=== PATIENT | male | born 1945 | race Caucasian/White ===

== ENCOUNTER 2019-01-04 18:48 | Inpatient (IN) | payer MEDICARE, BC ==
[~2019-01-04] VITALS: Ht 170.2 cm; Wt 80.0 kg
[2019-01-04 19:25] LABS: BASOPHILS % (AUTO) 0.3 % (0-1); EOSINOPHILS % (AUTO) 0.1 % (0-6); HEMATOCRIT 34.3 % (42.0-52.0); HEMOGLOBIN 11.1 g/dl (14.0-17.9); LYMPHOCYTES # (AUTO) 0.3 X10'3 (1.1-4.8); LYMPHOCYTES % (AUTO) 2.7 % (21-51); MEAN CORPUSCULAR HEMOGLOBIN 30.5 PG (27.0-31.0); MEAN CORPUSCULAR HGB CONC 32.5 g/dL (33.0-36.5); MEAN CORPUSCULAR VOLUME 93.9 FL (78-98); MEAN PLATELET VOLUME 7.7 FL (7.4-10.4); MONOCYTES # (AUTO) 0.2 X10'3 (0-0.9); MONOCYTES % (AUTO) 1.6 % (2-12); NEUTROPHILS % (AUTO) 95.3 % (42-75); PLATELET COUNT 330 X10'3 (140-440); RED BLOOD COUNT 3.66 X10'6 (4.70-6.10); RED CELL DISTRIBUTION WIDTH 15.5 % (11.5-14.5); WHITE BLOOD COUNT 12.5 X10'3 (4.5-11.0)
[2019-01-04 19:37] LABS: INR 2.1 INR; PARTIAL THROMBOPLASTIN TIME 36 SECONDS (22-32); PROTHROMBIN TIME 20.7 SECONDS (9.0-12.0)
[2019-01-04 19:38] LABS: ALANINE AMINOTRANSFERASE 25 U/L (12-78); ALBUMIN 2.8 G/DL (3.4-5.0); ALBUMIN/GLOBULIN RATIO 0.8 (1.1-1.5); ALKALINE PHOSPHATASE 96 IU/L (46-116); ANION GAP 11 (8-16); ASPARTATE AMINO TRANSFERASE 22 U/L (10-37); BILIRUBIN,TOTAL 0.7 MG/DL (0.1-1.0); BLOOD UREA NITROGEN 22 MG/DL (7-18); BUN/CREATININE RATIO 12.2 (5.4-32.0); CALCIUM 8.9 MG/DL (8.5-10.1); CHLORIDE 99 MMOL/L (99-107); CREATININE 1.81 MG/DL (0.60-1.10); GLUCOSE 168 MG/DL (70-104); POTASSIUM 4.1 MMOL/L (3.5-5.1); SODIUM 137 MMOL/L (135-145); TOTAL CARBON DIOXIDE 27.3 MMOL/L (24-32); TOTAL PROTEIN 6.4 G/DL (6.4-8.2); eGFR 37 ML/MIN
--- NOTE | 2019-01-04 19:49 | NUR ---
Afshan [phone] - CRISTAL Queen [phone] - SON Asiya [phone] - daughter
[2019-01-04] MEDS ORDERED: AMIO200T27 PO (19:55)
[2019-01-04] MEDS ORDERED: CLOP75TA15 PO (20:02)
[2019-01-04] MEDS ORDERED: LEVO50TA8 PO (20:02)
[2019-01-04] MEDS ORDERED: ATOR20TA PO (20:02)
[2019-01-04] MEDS ORDERED: POTA10TA10 PO (20:02)
[2019-01-04] MEDS ORDERED: ZAR2.5T PO (20:02)
[2019-01-04] MEDS ORDERED: FURO80TA3 PO (20:02)
[2019-01-04] MEDS ORDERED: NICO-687 TOP (20:02)
[2019-01-04] MEDS ORDERED: ASPI-1053 PO (20:02)
[2019-01-04] MEDS ORDERED: BUDE10.2 INH (20:02)
[2019-01-04] MEDS ORDERED: COU2.5T PO ×2 (20:02)
[2019-01-04] MEDS ORDERED: LEVA1.2527 NEB (20:02)
[2019-01-04 20:13] LABS: TROPONIN I 0.09 NG/ML (0.0-0.05)
[2019-01-04] MEDS ORDERED: ondansetron/PF 4mg/2ml inj IV PRN (20:30)
[2019-01-04] MEDS ORDERED: potassium Cl 40MEQ/NS 500ml 500 ML IV PRN ×2 (20:30)
[2019-01-04] MEDS ORDERED: mag hydrox/Alum hydrox/simeth 30ml oral suspension PO PRN (20:30)
[2019-01-04] MEDS ORDERED: nitroGLYCERIN 0.4mg SUBLingual tab SL PRN (20:30)
[2019-01-04] MEDS ORDERED: magnesium 4gm in 100ml NS 100 ML IV PRN (20:30)
[2019-01-04] MEDS ORDERED: magnesium hydroxide 30ml (MOM) UD suspension PO PRN (20:30)
[2019-01-04] MEDS ORDERED: magnesium 2GM in 50ml NS 50 ML IV PRN (20:30)
[2019-01-04] MEDS ORDERED: acetaminophen 325mg tablet PO PRN ×2 (20:30)
[2019-01-04] MEDS ORDERED: potassium Cl 20 mEq SR tablet PO PRN ×2 (20:30)
[2019-01-04] MEDS ORDERED: magnesium Cl slow-release 64mg tablet PO PRN (20:30)
[2019-01-04 21:15] VITALS: BP 92/58
--- NOTE | 2019-01-04 21:30 | NUR ---
Patient admitted via stretcher from ER. Patient without complaints or pain. VS 92/58 (patient states he has chronic low blood pressures), HR 82 NSR, 98.7 temp, RR 14, 92% on 2L NC (home O2). Patient oriented to room, call elliott, and plan of care.
[2019-01-04] MEDS: guaiFENesin ER 600mg tablet PO SCH (22:46)
[2019-01-05] VITALS (14 sets, daily range): BP systolic 82–116; BP diastolic 52–76
[2019-01-05] MEDS ORDERED: metolazone 2.5mg tablet PO SCH (02:35)
[2019-01-05 02:59] LABS: BASOPHILS % (AUTO) 0.1 % (0-1); EOSINOPHILS % (AUTO) 0 % (0-6); HEMATOCRIT 29.9 % (42.0-52.0); LYMPHOCYTES # (AUTO) 0.6 X10'3 (1.1-4.8); LYMPHOCYTES % (AUTO) 8.8 % (21-51); MEAN CORPUSCULAR HEMOGLOBIN 31.2 PG (27.0-31.0); MEAN CORPUSCULAR HGB CONC 33.4 g/dL (33.0-36.5); MEAN CORPUSCULAR VOLUME 93.4 FL (78-98); MEAN PLATELET VOLUME 7.8 FL (7.4-10.4); MONOCYTES # (AUTO) 0.1 X10'3 (0-0.9); MONOCYTES % (AUTO) 1.5 % (2-12); NEUTROPHILS # (AUTO) 6.4 X10'3 (1.8-7.7); NEUTROPHILS % (AUTO) 89.6 % (42-75); PLATELET COUNT 280 X10'3 (140-440); RED CELL DISTRIBUTION WIDTH 14.9 % (11.5-14.5); WHITE BLOOD COUNT 7.1 X10'3 (4.5-11.0)
[2019-01-05 03:10] LABS: ALBUMIN 2.6 G/DL (3.4-5.0); ANION GAP 9 (8-16); BLOOD UREA NITROGEN 24 MG/DL (7-18); BUN/CREATININE RATIO 13.9 (5.4-32.0); CHLORIDE 101 MMOL/L (99-107); CREATININE 1.73 MG/DL (0.60-1.10); GLUCOSE 166 MG/DL (70-104); MAGNESIUM 1.9 MG/DL (1.5-2.4); SODIUM 136 MMOL/L (135-145); TOTAL CARBON DIOXIDE 26.3 MMOL/L (24-32); TROPONIN I 0.08 NG/ML (0.0-0.05); eGFR 39 ML/MIN
--- NOTE | 2019-01-05 06:25 | NUR ---
Patient in room PCU 3016. I have received report from Bea GAMBLE and had the opportunity to ask questions and assume patient care.
--- NOTE | 2019-01-05 06:25 | NUR ---
During bedside report patient was alert and oriented. C/O Dark sputum with cough. Would like to clarify a medication that he is taking at home that he states "makes his tongue feel slimy" this has been making him lose his appetite. No signs of distress at this time.
[2019-01-05] MEDS: K and/or MAG REPLACEMENT MC SCH (06:45)
[2019-01-05] MEDS: guaiFENesin ER 600mg tablet PO SCH ×2 (07:09→20:21)
[2019-01-05] MEDS: amiodarone 200mg tablet PO SCH (07:09)
[2019-01-05] MEDS: levoTHYROXINE 25mcg tablet PO SCH (07:09)
[2019-01-05] MEDS: clopidogrel 75mg tablet PO SCH (07:09)
[2019-01-05] MEDS: nicotine 21mg patch - 24 hr TD SCH (07:10)
[2019-01-05] MEDS ORDERED: furosemide 40mg/4ml inj IV SCH (08:00)
[2019-01-05] MEDS: potassium Cl 20 mEq SR tablet PO SCH (08:00)
[2019-01-05] MEDS ORDERED: aspirin 81mg tab.chew PO SCH (08:00)
--- NOTE | 2019-01-05 09:45 | NUR ---
Spoke with Dr Velez regarding patient's lasix and potassium. I held the medication as the patient's blood pressure was 84/53 and potassium was 4.0. Wanted to clarify the order with Dr Velez as the patient states that he runs hypotensive since his stents in November and he was prescribed midodrine, however the medication makes his tongue feel "slimy" and therefore hinders his appetite. Dr Velez asked me to obtain medical records from [facility] in [place], [place] and would like to know what the patient's EF is. diesel truck technician at bedside now. Medical record release obtained. Will fax to [facility].
--- NOTE | 2019-01-05 17:48 | NUR ---
Student documentation: I have reviewed and agree with all interventions, assessments performed and documented by Landy NOYOLA. Student Medication Administration: For this medication-pass time frame, all medication were reviewed, dispensed, administered and documented per hospital policy by Landy NOYOLA.
--- NOTE | 2019-01-05 18:16 | NUR ---
Problems reprioritized. Patient report given, questions answered & plan of care reviewed with Arianna GAMBLE.
--- NOTE | 2019-01-05 18:30 | NUR ---
Patient in room PCU 3016. I have received report from Madeline GAMBLE and had the opportunity to ask questions and assume patient care.
[2019-01-05] MEDS: furosemide 20 MG/2 ML vial IV SCH ×2 (20:00→20:41)
[2019-01-05] MEDS: atorvastatin 20mg tablet PO SCH (20:21)
[2019-01-05] MEDS: albuterol 2.5 MG/3 ML nebule NEB PRN (20:43)
--- NOTE | 2019-01-05 20:44 | NUR ---
pt suddenly short of breath. tachycardia in 120s. paged . orders to give lasix 20 that was held due to low bp. orders to bladder scan post lasix and ricks if needed. albuterol ordered PRN. RT with pt now. bp now 106/67
[2019-01-05] MEDS ORDERED: furosemide 40mg/4ml inj ONE ×2 (21:12→21:37)
--- NOTE | 2019-01-05 21:13 | NUR ---
sandra watson, dr. vaughan at bedside. orders for cxr, lasix, abg, ricsk
[2019-01-05] MEDS ORDERED: furosemide 40mg/4ml inj IV ONE ×2 (21:15→21:35)
--- NOTE | 2019-01-05 21:22 | NUR ---
ricks in, not much urine out. bladder scan next
[2019-01-05 22:01] LABS: BASOPHILS % (AUTO) 0.1 % (0-1); EOSINOPHILS % (AUTO) 0 % (0-6); HEMATOCRIT 34.9 % (42.0-52.0); HEMOGLOBIN 11.3 g/dl (14.0-17.9); LYMPHOCYTES # (AUTO) 1.3 X10'3 (1.1-4.8); LYMPHOCYTES % (AUTO) 7.9 % (21-51); MEAN CORPUSCULAR HEMOGLOBIN 30.5 PG (27.0-31.0); MEAN CORPUSCULAR HGB CONC 32.3 g/dL (33.0-36.5); MEAN CORPUSCULAR VOLUME 94.2 FL (78-98); MEAN PLATELET VOLUME 8.2 FL (7.4-10.4); MONOCYTES # (AUTO) 0.7 X10'3 (0-0.9); MONOCYTES % (AUTO) 4.2 % (2-12); NEUTROPHILS # (AUTO) 14.4 X10'3 (1.8-7.7); NEUTROPHILS % (AUTO) 87.8 % (42-75); PLATELET COUNT 373 X10'3 (140-440); RED CELL DISTRIBUTION WIDTH 15.2 % (11.5-14.5); WHITE BLOOD COUNT 16.3 X10'3 (4.5-11.0)
[2019-01-05] MEDS: heparin, porcine 5000 units/ml vial SQ SCH (22:09)
--- NOTE | 2019-01-05 22:12 | NUR ---
urine up to 150 out now. pt feeling much better and is in good spirits. he just wants to get better. on bipap
[2019-01-05 22:15] LABS: ALBUMIN 2.8 G/DL (3.4-5.0); ANION GAP 12 (8-16); BLOOD UREA NITROGEN 37 MG/DL (7-18); BUN/CREATININE RATIO 15.6 (5.4-32.0); CHLORIDE 99 MMOL/L (99-107); CREATININE 2.37 MG/DL (0.60-1.10); GLUCOSE 218 MG/DL (70-104); PHOSPHORUS 5.9 MG/DL (2.3-4.5); POTASSIUM 3.9 MMOL/L (3.5-5.1); SODIUM 134 MMOL/L (135-145); eGFR 27 ML/MIN
[2019-01-05 22:45] LABS: ABG BASE EXCESS 1.7 mmol/L (-2.0-3.0); ABG OXYGEN SATURATION 98.5 % (95-98); ABG PH (T) 7.482 (7.350-7.450); ALLEN'S TEST Positive; FCOHb 0.3 % (0.5-1.5); FMetHb 0.2 % (0.3-1.12); MINUTE VOLUME 24 L/min; PATIENT TEMPERATURE 36.6; RESPIRATORY RATE 22 b/min; RESPIRATORY RATE (OBSERVED) 26 b/min; TOTAL HEMOGLOBIN 11.8 G/dl (14.0-18.0)
[2019-01-06] VITALS (9 sets, daily range): BP systolic 79–96; BP diastolic 53–63
--- NOTE | 2019-01-06 00:26 | NUR ---
pt resting comfortably, bipap still on. clear yellow urine in ricks. no sign of distress noted
--- NOTE | 2019-01-06 01:46 | NUR ---
pt wanted bipap off
--- NOTE | 2019-01-06 02:13 | NUR ---
pt had taken bipap off for about 1/2 hour, but he wanted it back on now, felt the trouble breathing start again. he said this is how he was in [place], he was on and off bipap there also.
--- NOTE | 2019-01-06 06:36 | NUR ---
Problems reprioritized. Patient report given, questions answered & plan of care reviewed with Kay GAMBLE. pt resting, off bipap
--- NOTE | 2019-01-06 06:54 | NUR ---
Patient in room PCU 3016. I have received report from Arianna GAMBLE and had the opportunity to ask questions and assume patient care.
[2019-01-06 07:19] LABS: BASOPHILS % (AUTO) 0.2 % (0-1); EOSINOPHILS % (AUTO) 0.1 % (0-6); HEMOGLOBIN 10.1 g/dl (14.0-17.9); MEAN CORPUSCULAR HEMOGLOBIN 30.9 PG (27.0-31.0); MEAN CORPUSCULAR HGB CONC 32.7 g/dL (33.0-36.5); MEAN CORPUSCULAR VOLUME 94.4 FL (78-98); MEAN PLATELET VOLUME 8.1 FL (7.4-10.4); MONOCYTES # (AUTO) 0.9 X10'3 (0-0.9); MONOCYTES % (AUTO) 7.7 % (2-12); NEUTROPHILS # (AUTO) 8.6 X10'3 (1.8-7.7); PLATELET COUNT 312 X10'3 (140-440); RED BLOOD COUNT 3.28 X10'6 (4.70-6.10); WHITE BLOOD COUNT 11.5 X10'3 (4.5-11.0)
[2019-01-06 07:37] LABS: ALBUMIN 2.6 G/DL (3.4-5.0); ANION GAP 8 (8-16); BLOOD UREA NITROGEN 40 MG/DL (7-18); BUN/CREATININE RATIO 20.3 (5.4-32.0); CALCIUM 8.7 MG/DL (8.5-10.1); CHLORIDE 101 MMOL/L (99-107); CREATININE 1.97 MG/DL (0.60-1.10); GLUCOSE 112 MG/DL (70-104); MAGNESIUM 2.2 MG/DL (1.5-2.4); POTASSIUM 3.9 MMOL/L (3.5-5.1); SODIUM 137 MMOL/L (135-145); TOTAL CARBON DIOXIDE 27.8 MMOL/L (24-32); eGFR 34 ML/MIN
[2019-01-06] MEDS: amiodarone 200mg tablet PO SCH (07:38)
[2019-01-06] MEDS: levoTHYROXINE 25mcg tablet PO SCH (07:38)
[2019-01-06] MEDS: clopidogrel 75mg tablet PO SCH (07:39)
[2019-01-06] MEDS: guaiFENesin ER 600mg tablet PO SCH ×2 (07:39→19:45)
[2019-01-06] MEDS: heparin, porcine 5000 units/ml vial SQ SCH ×3 (07:39→17:11)
[2019-01-06] MEDS: potassium Cl 20 mEq SR tablet PO SCH (07:39)
[2019-01-06] MEDS: furosemide 20 MG/2 ML vial IV SCH ×2 (07:40→19:46)
[2019-01-06] MEDS: nicotine 21mg patch - 24 hr TD SCH (07:40)
[2019-01-06] MEDS: K and/or MAG REPLACEMENT MC SCH (07:44)
--- NOTE | 2019-01-06 14:45 | NUR ---
PAGER ID: [phone] MESSAGE: Skinny 666Eliza Chung. Can ricks catheter be removed? Kay [phone]
--- NOTE | 2019-01-06 14:59 | NUR ---
Paged respiratory Rm [phone],Cheng. Pt's trach needs adjusted again please!!!
--- NOTE | 2019-01-06 18:20 | NUR ---
Problems reprioritized. Patient report given, questions answered & plan of care reviewed with Arianna GAMBLE. Patient stable at transfer of care.
--- NOTE | 2019-01-06 18:30 | NUR ---
Patient in room PCU 3016. I have received report from Kay GAMBLE and had the opportunity to ask questions and assume patient care.
--- NOTE | 2019-01-06 18:52 | NUR ---
paged regarding lasix parameters. SBP 90/60 currently. PAGER ID: [phone] MESSAGE: [phone], Jesús Kay. Lasix parameters are still hold if SBP under 100. Do you want to change this? current bp 90/60. 80s-90s is pt current normal
[2019-01-06] MEDS: albuterol 2.5 MG/3 ML nebule NEB PRN (19:45)
[2019-01-06] MEDS: atorvastatin 20mg tablet PO SCH (19:45)
[2019-01-07] VITALS (7 sets, daily range): BP systolic 77–91; BP diastolic 47–61
[2019-01-07] MEDS: heparin, porcine 5000 units/ml vial SQ SCH ×2 (00:22→07:23)
--- NOTE | 2019-01-07 00:23 | NUR ---
pt request stool softner tomorrow
--- NOTE | 2019-01-07 05:13 | NUR ---
pt wanted bipap on, stating he felt like he was going to have trouble breathing again
[2019-01-07 06:04] LABS: BASOPHILS % (AUTO) 0.1 % (0-1); EOSINOPHILS % (AUTO) 0.2 % (0-6); HEMOGLOBIN 10.3 g/dl (14.0-17.9); LYMPHOCYTES # (AUTO) 2.4 X10'3 (1.1-4.8); MEAN CORPUSCULAR HEMOGLOBIN 31.2 PG (27.0-31.0); MEAN CORPUSCULAR HGB CONC 33.4 g/dL (33.0-36.5); MEAN CORPUSCULAR VOLUME 93.3 FL (78-98); MEAN PLATELET VOLUME 8.3 FL (7.4-10.4); MONOCYTES % (AUTO) 8.9 % (2-12); NEUTROPHILS # (AUTO) 8.1 X10'3 (1.8-7.7); NEUTROPHILS % (AUTO) 69.8 % (42-75); PLATELET COUNT 305 X10'3 (140-440); RED BLOOD COUNT 3.32 X10'6 (4.70-6.10); RED CELL DISTRIBUTION WIDTH 15.4 % (11.5-14.5); WHITE BLOOD COUNT 11.6 X10'3 (4.5-11.0)
[2019-01-07 06:06] LABS: ALBUMIN 2.6 G/DL (3.4-5.0); ANION GAP 10 (8-16); BLOOD UREA NITROGEN 43 MG/DL (7-18); BUN/CREATININE RATIO 26.2 (5.4-32.0); CALCIUM 8.9 MG/DL (8.5-10.1); CHLORIDE 104 MMOL/L (99-107); CREATININE 1.64 MG/DL (0.60-1.10); GLUCOSE 95 MG/DL (70-104); MAGNESIUM 2.2 MG/DL (1.5-2.4); POTASSIUM 3.9 MMOL/L (3.5-5.1); SODIUM 140 MMOL/L (135-145); TOTAL CARBON DIOXIDE 26.4 MMOL/L (24-32); eGFR 42 ML/MIN
--- NOTE | 2019-01-07 06:26 | NUR ---
Problems reprioritized. Patient report given, questions answered & plan of care reviewed with Kay GAMBLE.
--- NOTE | 2019-01-07 06:29 | NUR ---
Patient in room PCU 3016. I have received report from Arianna GAMBLE and had the opportunity to ask questions and assume patient care.
--- NOTE | 2019-01-07 07:14 | NUR ---
Re-checked patients BP. 89/53.
[2019-01-07] MEDS: furosemide 20 MG/2 ML vial IV SCH ×2 (07:21→20:23)
[2019-01-07] MEDS: levoTHYROXINE 25mcg tablet PO SCH (07:21)
[2019-01-07] MEDS: potassium Cl 20 mEq SR tablet PO SCH (07:22)
[2019-01-07] MEDS: amiodarone 200mg tablet PO SCH (07:22)
[2019-01-07] MEDS: guaiFENesin ER 600mg tablet PO SCH ×2 (07:22→20:22)
[2019-01-07] MEDS: clopidogrel 75mg tablet PO SCH (07:22)
[2019-01-07] MEDS: K and/or MAG REPLACEMENT MC SCH (07:30)
[2019-01-07] MEDS: nicotine 21mg patch - 24 hr TD SCH (07:31)
[2019-01-07 09:31] LABS: ALANINE AMINOTRANSFERASE 24 U/L (12-78); ALBUMIN 2.5 G/DL (3.4-5.0); ALBUMIN/GLOBULIN RATIO 0.8 (1.1-1.5); ALKALINE PHOSPHATASE 76 IU/L (46-116); ANION GAP 6 (8-16); ASPARTATE AMINO TRANSFERASE 17 U/L (10-37); BILIRUBIN,TOTAL 0.6 MG/DL (0.1-1.0); BLOOD UREA NITROGEN 43 MG/DL (7-18); CALCIUM 8.6 MG/DL (8.5-10.1); CHLORIDE 104 MMOL/L (99-107); CREATININE 1.72 MG/DL (0.60-1.10); GLUCOSE 156 MG/DL (70-104); POTASSIUM 3.9 MMOL/L (3.5-5.1); SODIUM 139 MMOL/L (135-145); TOTAL CARBON DIOXIDE 29.5 MMOL/L (24-32); TOTAL PROTEIN 5.7 G/DL (6.4-8.2); eGFR 39 ML/MIN
[2019-01-07 09:40] LABS: PROTHROMBIN TIME 19.4 SECONDS (9.0-12.0)
--- NOTE | 2019-01-07 15:36 | NUR ---
PAGER ID: [phone] MESSAGE: Eliza Hays. [facility] will not be able to scan lungs until tomorrow. Kay [phone]
[2019-01-07] MEDS: midodrine tablet 2.5 MG TABLET PO SCH ×2 (16:18→23:14)
--- NOTE | 2019-01-07 18:15 | NUR ---
Patient in room PCU 3016. I have received report from Kay GAMBLE and had the opportunity to ask questions and assume patient care. Pt is currently sleeping. Equal chest rise observed, no labored breathing. Low BPs on mobile. Per report he trends low MD aware. Orders for V/Q scan tmro.
--- NOTE | 2019-01-07 18:44 | NUR ---
Problems reprioritized. Patient report given, questions answered & plan of care reviewed with Amara RN. Patient stable at transfer of care.
--- NOTE | 2019-01-07 18:50 | NUR ---
Patient in room PCU 3016. I have received report from Kay and had the opportunity to ask questions and assume patient care.
[2019-01-07] MEDS: atorvastatin 20mg tablet PO SCH (20:22)
[2019-01-07] MEDS ORDERED: warfarin 1mg tablet PO ONE (21:00)
--- NOTE | 2019-01-07 23:10 | NUR ---
Page Sent promotional table spacer PAGER ID: [phone] MESSAGE: Jesús Eliza 3016-A here for CHF exac. blood pressure was 77/54 @2300. patient's SBP was in the 80s all day and day hospitalist was aware. patient has midodrine due at midnight. will give now. Sergei [phone]
--- NOTE | 2019-01-07 23:27 | NUR ---
Dr. Bingham advised to bring down head of bed some and elevate his legs to promote perfusion. Pt ASx, no dizziness, blurry vision, weakness or chest pain.
[2019-01-08 02:00] VITALS: BP 83/54
--- NOTE | 2019-01-08 02:42 | NUR ---
PAGER ID: [phone] MESSAGE: Jesús Ambrose in [id number] here for [facility] ex, has bipap on standby following a rapid he had 2 days ago. No order was ever placed then. May I have an order? Suad Kelly Addendum: 01/08/19 at 0253 by Suad Hopper RN New orders to have bipap PRGuerline
--- NOTE | 2019-01-08 06:36 | NUR ---
Problems reprioritized. Patient report given, questions answered & plan of care reviewed with VIRGIE.
--- NOTE | 2019-01-08 06:37 | NUR ---
Problems reprioritized. Patient report given, questions answered & plan of care reviewed with VIRGIE GAMBLE. NEW GRAD documentation: I have reviewed and agree with all interventions, assessments performed and documented by ROCKY GAMBLE. NEW GRAD Medication Administration: For this medication-pass time frame, all medication were reviewed, dispensed, administered and documented per hospital policy by ROCKY GAMBLE.
--- NOTE | 2019-01-08 06:49 | NUR ---
Patient in room PCU 3016. I have received report from Suad GAMBLE and had the opportunity to ask questions and assume patient care. Pt is saline locked, alert and oriented X 4 in no apparent distress, will continue to monitor.
[2019-01-08 07:00] VITALS: BP 83/48
[2019-01-08 07:05] LABS: BASOPHILS % (AUTO) 0.5 % (0-1); EOSINOPHILS # (AUTO) 0.1 X10'3 (0-0.9); EOSINOPHILS % (AUTO) 1.9 % (0-6); HEMATOCRIT 29.4 % (42.0-52.0); HEMOGLOBIN 9.8 g/dl (14.0-17.9); LYMPHOCYTES # (AUTO) 1.9 X10'3 (1.1-4.8); LYMPHOCYTES % (AUTO) 23.4 % (21-51); MEAN CORPUSCULAR HEMOGLOBIN 31.6 PG (27.0-31.0); MEAN CORPUSCULAR HGB CONC 33.4 g/dL (33.0-36.5); MEAN CORPUSCULAR VOLUME 94.4 FL (78-98); MEAN PLATELET VOLUME 8.3 FL (7.4-10.4); MONOCYTES # (AUTO) 0.9 X10'3 (0-0.9); MONOCYTES % (AUTO) 10.5 % (2-12); NEUTROPHILS # (AUTO) 5.1 X10'3 (1.8-7.7); NEUTROPHILS % (AUTO) 63.7 % (42-75); PLATELET COUNT 286 X10'3 (140-440); RED BLOOD COUNT 3.11 X10'6 (4.70-6.10); RED CELL DISTRIBUTION WIDTH 15.3 % (11.5-14.5); WHITE BLOOD COUNT 8.1 X10'3 (4.5-11.0)
[2019-01-08 07:11] LABS: ALBUMIN 2.3 G/DL (3.4-5.0); ANION GAP 7 (8-16); BLOOD UREA NITROGEN 42 MG/DL (7-18); BUN/CREATININE RATIO 31.6 (5.4-32.0); CALCIUM 8.5 MG/DL (8.5-10.1); CHLORIDE 107 MMOL/L (99-107); CREATININE 1.33 MG/DL (0.60-1.10); GLUCOSE 89 MG/DL (70-104); MAGNESIUM 2.2 MG/DL (1.5-2.4); POTASSIUM 4.1 MMOL/L (3.5-5.1); SODIUM 143 MMOL/L (135-145); TOTAL CARBON DIOXIDE 28.9 MMOL/L (24-32); eGFR 53 ML/MIN
[2019-01-08] MEDS: clopidogrel 75mg tablet PO SCH (07:46)
[2019-01-08] MEDS: levoTHYROXINE 25mcg tablet PO SCH (07:46)
[2019-01-08] MEDS: amiodarone 200mg tablet PO SCH (07:47)
[2019-01-08] MEDS: guaiFENesin ER 600mg tablet PO SCH ×2 (07:47→21:28)
[2019-01-08] MEDS: midodrine tablet 2.5 MG TABLET PO SCH ×2 (07:47→16:53)
[2019-01-08] MEDS: nicotine 21mg patch - 24 hr TD SCH (08:00)
[2019-01-08] MEDS: furosemide 20 MG/2 ML vial IV SCH ×2 (08:00→21:30)
[2019-01-08] MEDS: potassium Cl 20 mEq SR tablet PO SCH (08:00)
[2019-01-08] MEDS: K and/or MAG REPLACEMENT MC SCH (08:00)
[2019-01-08 08:04] LABS: INR 1.7 INR; PROTHROMBIN TIME 16.4 SECONDS (9.0-12.0)
--- NOTE | 2019-01-08 08:50 | NUR ---
PAGER ID: [phone] MESSAGE: [id number] Jesús Kay Pt blood pressure is 81/43, pt denies dizziness. Held scheduled Lasix, Thank you Lola #[phone]
[2019-01-08 11:00] VITALS: BP 90/54
[2019-01-08 15:00] VITALS: BP 84/50
[2019-01-08 18:00] VITALS: BP 82/53
--- NOTE | 2019-01-08 18:37 | NUR ---
Problems reprioritized. Patient report given, questions answered & plan of care reviewed with Luis RN and Donato RN.
[2019-01-08] MEDS ORDERED: warfarin 1mg tablet PO ONE (21:00)
[2019-01-08] MEDS: atorvastatin 20mg tablet PO SCH (21:28)
[2019-01-08 22:00] VITALS: BP 86/59
[2019-01-09] MEDS: midodrine tablet 2.5 MG TABLET PO SCH ×3 (00:08→16:42)
[2019-01-09 02:00] VITALS: BP 86/53
[2019-01-09 05:57] LABS: BASOPHILS % (AUTO) 0.5 % (0-1); EOSINOPHILS # (AUTO) 0.2 X10'3 (0-0.9); HEMATOCRIT 29.7 % (42.0-52.0); HEMOGLOBIN 9.9 g/dl (14.0-17.9); LYMPHOCYTES # (AUTO) 2.4 X10'3 (1.1-4.8); LYMPHOCYTES % (AUTO) 30.4 % (21-51); MEAN CORPUSCULAR HEMOGLOBIN 31.1 PG (27.0-31.0); MEAN CORPUSCULAR HGB CONC 33.3 g/dL (33.0-36.5); MEAN CORPUSCULAR VOLUME 93.4 FL (78-98); MEAN PLATELET VOLUME 8.1 FL (7.4-10.4); MONOCYTES # (AUTO) 0.8 X10'3 (0-0.9); MONOCYTES % (AUTO) 9.9 % (2-12); NEUTROPHILS # (AUTO) 4.4 X10'3 (1.8-7.7); NEUTROPHILS % (AUTO) 56.2 % (42-75); PLATELET COUNT 288 X10'3 (140-440); RED BLOOD COUNT 3.18 X10'6 (4.70-6.10); RED CELL DISTRIBUTION WIDTH 15.4 % (11.5-14.5); WHITE BLOOD COUNT 7.7 X10'3 (4.5-11.0)
[2019-01-09 05:58] LABS: ALBUMIN 2.3 G/DL (3.4-5.0); ANION GAP 6 (8-16); BLOOD UREA NITROGEN 36 MG/DL (7-18); BUN/CREATININE RATIO 28.3 (5.4-32.0); CALCIUM 8.5 MG/DL (8.5-10.1); CHLORIDE 106 MMOL/L (99-107); CREATININE 1.27 MG/DL (0.60-1.10); GLUCOSE 87 MG/DL (70-104); MAGNESIUM 2.1 MG/DL (1.5-2.4); POTASSIUM 3.7 MMOL/L (3.5-5.1); SODIUM 140 MMOL/L (135-145); TOTAL CARBON DIOXIDE 28.3 MMOL/L (24-32); eGFR 56 ML/MIN
[2019-01-09 06:08] LABS: INR 1.3 INR; PROTHROMBIN TIME 13.3 SECONDS (9.0-12.0)
--- NOTE | 2019-01-09 06:32 | NUR ---
Patient in room PCU 3016. I have received report from Luis GAMBLE and had the opportunity to ask questions and assume patient care. Pt is saline locked on 2L nasal canula. Pt resting in no apparent distress, will continue to monitor.
[2019-01-09 07:00] VITALS: BP 82/60
[2019-01-09] MEDS: potassium Cl 20 mEq SR tablet PO SCH (07:26)
[2019-01-09] MEDS: amiodarone 200mg tablet PO SCH (07:26)
[2019-01-09] MEDS: levoTHYROXINE 25mcg tablet PO SCH (07:26)
[2019-01-09] MEDS: guaiFENesin ER 600mg tablet PO SCH (07:26)
[2019-01-09] MEDS: clopidogrel 75mg tablet PO SCH (07:26)
[2019-01-09] MEDS: K and/or MAG REPLACEMENT MC SCH (08:00)
[2019-01-09] MEDS: furosemide 20 MG/2 ML vial IV SCH (08:00)
[2019-01-09] MEDS: nicotine 21mg patch - 24 hr TD SCH (08:00)
[2019-01-09 11:00] VITALS: BP 107/63
--- NOTE | 2019-01-09 11:05 | NUR ---
PAGER ID: [phone] MESSAGE: [id number] Jesús Kay Pt's blood pressure is now 107/63, would you like me to give Lasix now? Held at 0800 due to decreased BP. Thank you, Lola #[phone]
--- NOTE | 2019-01-09 11:16 | NUR ---
Initial: Pt admit with CHF with possible cor-pulmonale unknown, currently receiving Lasix per MD notes. Pt on a heart healthy diet with fluid restriction of 1500 mL/day with documented PO intake 50-75% likely meeting nutrient needs. LBM 01/09. No edema or wounds. No nutrition diagnosis at this time. Will continue to follow. Recommendations: 1) Continue heart healthy diet with fluid restriction per MD 2) Wt per rx Addendum: 01/09/19 at [address] Amended: Links added.
[2019-01-09 15:00] VITALS: BP 94/50
[2019-01-09] MEDS ORDERED: FURO-150 PO (16:24)
[2019-01-09] MEDS ORDERED: MIDO5TAB PO (16:24)
--- NOTE | 2019-01-09 17:25 | NUR ---
Reviewed discharge instructions and provided patient education about patient's new medications, heart failure, importance of daily weights, monitoring blood pressure, signs and symptoms of when to return to the hospital. Called in new prescriptions to the [facility] in [place] on [address]. Patient is scheduled to see his PCP next Saturday at 10 am. Discontinued IV with canula intact and removed tele monitor. Pt discharged in stable condition and alert and oriented. Pt taken to lobby via wheelchair and driven home in private vehicle accompanied by family. Family was also present during discharge instructions and verbalized understanding.
[2019-01-09] MEDS ORDERED: warfarin 3mg tablet PO ONE (21:00)
== END 2019-01-09 17:25 | disposition home or self-care (01) | DRG 280 ==
LOC: ER 18:49 → ED HOLD 20:28 → PCU 3S 21:10
PROVIDERS: ADMIT Hospitalist; ATTEND Internal Medicine
PROC: 5A09357 Assistance with Respiratory Ventilation, Less than 24 Consecutive Hours, Continuous Positive Airway Pressure (ICD-10-PCS; principal; 2019-01-05)
PROC: 5A09357 Assistance with Respiratory Ventilation, Less than 24 Consecutive Hours, Continuous Positive Airway Pressure (ICD-10-PCS; 2019-01-06)
PROC: 5A09357 Assistance with Respiratory Ventilation, Less than 24 Consecutive Hours, Continuous Positive Airway Pressure (ICD-10-PCS; 2019-01-08)
PROC: CB121ZZ Planar Nuclear Medicine Imaging of Lungs and Bronchi using Technetium 99m (Tc-99m) (ICD-10-PCS; 2019-01-08)
DX: I11.0 Hypertensive heart disease with heart failure (principal); J96.01 Acute respiratory failure with hypoxia; I21.A1 Myocardial infarction type 2; N17.9 Acute kidney failure, unspecified; I50.43 Acute on chronic combined systolic (congestive) and diastolic (congestive) heart failure; I48.2 Chronic atrial fibrillation; I25.10 Atherosclerotic heart disease of native coronary artery without angina pectoris; E78.00 Pure hypercholesterolemia, unspecified; J44.9 Chronic obstructive pulmonary disease, unspecified; E03.9 Hypothyroidism, unspecified; I48.0 Paroxysmal atrial fibrillation; I27.20 Pulmonary hypertension, unspecified; K74.60 Unspecified cirrhosis of liver; E11.9 Type 2 diabetes mellitus without complications; I95.89 Other hypotension; E78.5 Hyperlipidemia, unspecified; F10.21 Alcohol dependence, in remission; I25.2 Old myocardial infarction; Z95.5 Presence of coronary angioplasty implant and graft; Z99.81 Dependence on supplemental oxygen; Z87.891 Personal history of nicotine dependence; Z79.01 Long term (current) use of anticoagulants; Z79.899 Other long term (current) drug therapy; Z79.890 Hormone replacement therapy
CPT/HCPCS: 36415; 36600; 71045; 76700; 78582; 80048; 80053; 82803; 82948; 83735; 83880; 84100; 84484; 85018; 85025; 85610; 85730; 87070; 93005; 93306; 94640; 94660; 94760; 97116; 97161; 97164; 97530; 99285; A9539; A9540; G0378; J1644; J1940

== ENCOUNTER 2019-01-12 23:19 | Inpatient (IN) | payer MEDICARE, BC ==
[~2019-01-12] VITALS: Ht 170.2 cm; Wt 81.5 kg
[~2019-01-12 23:19] MED LIST: AMIO200T27 PO; ATOR20TA PO; CLOP75TA15 PO; COU2.5T PO; FURO-150 PO; LEVO50TA8 PO; MIDO5TAB PO; POTA10TA10 PO; ZAR2.5T PO
[2019-01-13] MEDS ORDERED: furosemide 10 MG/1 ML 10ml inj IV ONE (00:05)
[2019-01-13 00:21] LABS: ANION GAP 7 (8-16); BILIRUBIN,TOTAL 0.9 MG/DL (0.1-1.0); BLOOD UREA NITROGEN 21 MG/DL (7-18); BUN/CREATININE RATIO 13.4 (5.4-32.0); CALCIUM 8.9 MG/DL (8.5-10.1); CHLORIDE 104 MMOL/L (99-107); CREATININE 1.57 MG/DL (0.60-1.10); GLUCOSE 110 MG/DL (70-104); POTASSIUM 5.7 MMOL/L (3.5-5.1); SODIUM 135 MMOL/L (135-145); TOTAL CARBON DIOXIDE 24.4 MMOL/L (24-32); TOTAL PROTEIN 6.5 G/DL (6.4-8.2); eGFR 44 ML/MIN
[2019-01-13 00:22] LABS: ALANINE AMINOTRANSFERASE 35 U/L (12-78); ALBUMIN 3.1 G/DL (3.4-5.0); ALBUMIN/GLOBULIN RATIO 0.9 (1.1-1.5); ALKALINE PHOSPHATASE 100 IU/L (46-116); ASPARTATE AMINO TRANSFERASE 25 U/L (10-37)
[2019-01-13 00:29] LABS: BASOPHILS # (AUTO) 0.1 X10'3 (0-0.2); BASOPHILS % (AUTO) 0.5 % (0-1); EOSINOPHILS # (AUTO) 0.1 X10'3 (0-0.9); EOSINOPHILS % (AUTO) 0.6 % (0-6); HEMATOCRIT 34.6 % (42.0-52.0); HEMOGLOBIN 11.3 g/dl (14.0-17.9); LYMPHOCYTES # (AUTO) 1.7 X10'3 (1.1-4.8); LYMPHOCYTES % (AUTO) 11.8 % (21-51); MEAN CORPUSCULAR HEMOGLOBIN 31.4 PG (27.0-31.0); MEAN CORPUSCULAR HGB CONC 32.7 g/dL (33.0-36.5); MEAN CORPUSCULAR VOLUME 95.9 FL (78-98); MEAN PLATELET VOLUME 7.9 FL (7.4-10.4); MONOCYTES # (AUTO) 1.1 X10'3 (0-0.9); MONOCYTES % (AUTO) 7.7 % (2-12); NEUTROPHILS # (AUTO) 11.1 X10'3 (1.8-7.7); NEUTROPHILS % (AUTO) 79.4 % (42-75); PLATELET COUNT 336 X10'3 (140-440); RED BLOOD COUNT 3.61 X10'6 (4.70-6.10); RED CELL DISTRIBUTION WIDTH 15.9 % (11.5-14.5)
[2019-01-13 00:47] LABS: PARTIAL THROMBOPLASTIN TIME 28 SECONDS (22-32); PROTHROMBIN TIME 10.4 SECONDS (9.0-12.0)
[2019-01-13] MEDS ORDERED: sodium polystyrene sulfonate 15gm/60ml oral suspension PO ONE (00:55)
[2019-01-13] MEDS ORDERED: aspirin 81mg tab.chew PO ONE (01:05)
[2019-01-13] MEDS ORDERED: morphine 4 MG/ML inj SYRINge IV PRN ×2 (01:15)
[2019-01-13] MEDS ORDERED: magnesium 4gm in 100ml NS 100 ML IV PRN (01:15)
[2019-01-13] MEDS ORDERED: acetaminophen 325mg tablet PO PRN (01:15)
[2019-01-13] MEDS ORDERED: potassium Cl 20 mEq SR tablet PO PRN ×2 (01:15)
[2019-01-13] MEDS ORDERED: ipratropium/albuterol 3ml nebule NEB PRN (01:15)
[2019-01-13] MEDS ORDERED: potassium Cl 40MEQ/NS 500ml 500 ML IV PRN ×2 (01:15)
[2019-01-13] MEDS ORDERED: ondansetron/PF 4mg/2ml inj IV PRN (01:15)
[2019-01-13] MEDS ORDERED: magnesium 2GM in 50ml NS 50 ML IV PRN (01:15)
[2019-01-13] MEDS ORDERED: magnesium hydroxide 30ml (MOM) UD suspension PO PRN (01:15)
[2019-01-13] MEDS ORDERED: warfarin 2.5mg tablet PO ONE (01:30)
[2019-01-13 04:03] LABS: PROTHROMBIN TIME 10.2 SECONDS (9.0-12.0)
--- NOTE | 2019-01-13 07:36 | NUR ---
SMALL CHRONIC WOUND TO COCCYX AND REDNESS, PHOTO TAKEN, SENT TO FLOOR
--- NOTE | 2019-01-13 07:40 | NUR ---
Report received from Lynette. Patient arrived to [facility]. Transferred to hospital bed with minimal assistance. VS: T: 97.8, HR: 76, RR: 22, O2 99 2L Nasal cannula BP 83/58. Pain 0/10. Patient in no acute distress. Will continue to monitor.
[2019-01-13] MEDS: K and/or MAG REPLACEMENT MC SCH (08:00)
[2019-01-13] MEDS ORDERED: furosemide 10 MG/1 ML 10ml inj IV SCH (08:00)
[2019-01-13] MEDS: midodrine 5mg tablet PO SCH ×3 (09:02→23:57)
[2019-01-13] MEDS: clopidogrel 75mg tablet PO SCH (09:03)
[2019-01-13] MEDS: famotidine 20mg tablet PO SCH ×2 (09:03→20:26)
[2019-01-13] MEDS ORDERED: GUAI600T45 PO (10:05)
[2019-01-13 11:00] VITALS: BP 73/43
[2019-01-13] MEDS: mag hydrox/Alum hydrox/simeth 30ml oral suspension PO PRN (12:43)
[2019-01-13 15:00] VITALS: BP 77/44
[2019-01-13] MEDS ORDERED: nitroGLYCERIN 0.4mg SUBLingual tab SL PRN (15:30)
[2019-01-13] MEDS ORDERED: aminophylline 250mg/10ml inj. IV PRN (15:30)
[2019-01-13] MEDS ORDERED: metoprolol tartrate 1mg/ml inj IV PRN (15:30)
[2019-01-13] MEDS ORDERED: regadenoson 0.4mg/5ml syringe IV ONE (15:30)
[2019-01-13 16:39] LABS: CLARITY,URINE CLEAR (Clear); COLOR,URINE YELLOW (Yellow); GLUCOSE, URINE NEGATIVE (Neg); KETONES,URINE TRACE mg/dl (Neg); LEUKOCYTE ESTERASE ,URINE NEGATIVE (Neg); NITRITES, URINE NEGATIVE (Neg); OCCULT BLOOD,URINE NEGATIVE (Neg); PROTEIN,URINE NEGATIVE (Neg); UROBILINOGEN,URINE 0.2 E.U/dL (0.2-1.0)
[2019-01-13 16:41] LABS: UA COLLECTION TYPE NON-SPECIFIED
[2019-01-13 18:00] VITALS: BP 96/58
--- NOTE | 2019-01-13 18:47 | NUR ---
Problems reprioritized. Patient report given, questions answered & plan of care reviewed with Ladan GAMBLE.
--- NOTE | 2019-01-13 18:48 | NUR ---
Received report from MAVIS Cormier. Patient is awake and alert on 2L NC, in no apparent distress. Family at bedside. Call light and items of frequent use within reach. Will continue to monitor.
[2019-01-13] MEDS ORDERED: amiodarone 200mg tablet PO ONE (19:55)
[2019-01-13] MEDS: atorvastatin 20mg tablet PO SCH (20:26)
[2019-01-13] MEDS: guaiFENesin ER 600mg tablet PO SCH (20:26)
[2019-01-13] MEDS ORDERED: warfarin 3mg tablet PO ONE (21:00)
[2019-01-13 22:00] VITALS: BP 82/47
[2019-01-14] VITALS (7 sets, daily range): BP systolic 88–100; BP diastolic 46–62
[2019-01-14] MEDS ORDERED: midodrine 5mg tablet PO SCH
[2019-01-14 05:20] LABS: BASOPHILS # (AUTO) 0.1 X10'3 (0-0.2); BASOPHILS % (AUTO) 0.9 % (0-1); EOSINOPHILS # (AUTO) 0.1 X10'3 (0-0.9); EOSINOPHILS % (AUTO) 1.5 % (0-6); HEMATOCRIT 29.8 % (42.0-52.0); HEMOGLOBIN 9.8 g/dl (14.0-17.9); LYMPHOCYTES % (AUTO) 25.5 % (21-51); MEAN CORPUSCULAR HEMOGLOBIN 31.1 PG (27.0-31.0); MEAN CORPUSCULAR HGB CONC 32.9 g/dL (33.0-36.5); MEAN CORPUSCULAR VOLUME 94.6 FL (78-98); MEAN PLATELET VOLUME 8.1 FL (7.4-10.4); MONOCYTES # (AUTO) 0.9 X10'3 (0-0.9); NEUTROPHILS # (AUTO) 4.8 X10'3 (1.8-7.7); NEUTROPHILS % (AUTO) 61.1 % (42-75); PLATELET COUNT 315 X10'3 (140-440); RED BLOOD COUNT 3.15 X10'6 (4.70-6.10); RED CELL DISTRIBUTION WIDTH 15.6 % (11.5-14.5); WHITE BLOOD COUNT 7.8 X10'3 (4.5-11.0)
[2019-01-14 05:22] LABS: INR 1.1 INR; PROTHROMBIN TIME 10.7 SECONDS (9.0-12.0)
[2019-01-14 05:29] LABS: ALANINE AMINOTRANSFERASE 24 U/L (12-78); ALBUMIN 2.6 G/DL (3.4-5.0); ALBUMIN/GLOBULIN RATIO 0.9 (1.1-1.5); ALKALINE PHOSPHATASE 84 IU/L (46-116); ANION GAP 5 (8-16); ASPARTATE AMINO TRANSFERASE 19 U/L (10-37); BILIRUBIN,TOTAL 0.7 MG/DL (0.1-1.0); BLOOD UREA NITROGEN 16 MG/DL (7-18); BUN/CREATININE RATIO 11.4 (5.4-32.0); CALCIUM 8.3 MG/DL (8.5-10.1); CHLORIDE 106 MMOL/L (99-107); CHOL/HDL RATIO 3.5 (0.00-4.99); CHOLESTEROL 126 MG/DL (0-200); GLUCOSE 79 MG/DL (70-104); HDL CHOLESTEROL 36 MG/DL (35-60); LDL CHOLESTEROL 77 MG/DL (50-100); MAGNESIUM 2.2 MG/DL (1.5-2.4); POTASSIUM 4.1 MMOL/L (3.5-5.1); SODIUM 138 MMOL/L (135-145); TOTAL PROTEIN 5.5 G/DL (6.4-8.2); TRIGLYCERIDES 93 MG/DL (20-135); eGFR 50 ML/MIN
--- NOTE | 2019-01-14 06:15 | NUR ---
Problems reprioritized. Patient report given, questions answered & plan of care reviewed with MAVIS Cormier.
--- NOTE | 2019-01-14 06:28 | NUR ---
Patient in room PCU 3027. I have received report from Ladan GAMBLE and had the opportunity to ask questions and assume patient care. Patient awake in bed. In no acute distress. Will continue to monitor.
[2019-01-14] MEDS ORDERED: levoTHYROXINE 25mcg tablet PO SCH (07:00)
[2019-01-14] MEDS: K and/or MAG REPLACEMENT MC SCH (08:00)
[2019-01-14] MEDS: amiodarone 200mg tablet PO SCH (08:04)
[2019-01-14] MEDS: clopidogrel 75mg tablet PO SCH (08:04)
[2019-01-14] MEDS: guaiFENesin ER 600mg tablet PO SCH ×2 (08:04→19:41)
[2019-01-14] MEDS: famotidine 20mg tablet PO SCH ×2 (08:04→19:41)
[2019-01-14] MEDS: midodrine 5mg tablet PO SCH ×2 (08:04→15:31)
--- NOTE | 2019-01-14 08:44 | NUR ---
Patient scheduled for Lexiscan this morning. Only access is field start that is patent. Patient is a hard stick. Will page PICC nurse.
[2019-01-14] MEDS ORDERED: regadenoson 0.4mg/5ml syringe IV ONE (09:55)
[2019-01-14] MEDS ORDERED: aminophylline inj. 10 ML IV ONE (09:55)
[2019-01-14] MEDS ORDERED: pneumococcal 23-VAL P-sac vacc 25 mcg/0.5ml vial IMVAC ONE (10:00)
--- NOTE | 2019-01-14 10:18 | NUR ---
Patient back to bed after Lexiscan. In no acute distress with no immediate needs. Will continue to monitor.
--- NOTE | 2019-01-14 10:20 | NUR ---
Paged Dr. Moreno: PAGER ID: [phone] MESSAGE: Genia [facility] [phone]. RE: Jesús Kay [id number]. FYI - patient went for Lexiscan today. Dr. Garnett canceled the 2nd part of scan due to low blood pressure.
[2019-01-14] MEDS: mag hydrox/Alum hydrox/simeth 30ml oral suspension PO PRN (15:31)
--- NOTE | 2019-01-14 17:40 | NUR ---
Malnutrition consult: Pt admit w/ SOB hx hypothyroidism, HTN, COPD, CHF. DX LA and cor pulmonale w/ chronic afib per MD note. Pt PO 25-50% meals w/ LBM 01/12. Pt/family seen by OSMANY and both report low baseline appetite in addition to wt loss this past October which was partially intentional. Pt states he felt better when he lost wt which motivated him but also had lower appetite as a result of being sick and medications changing tastes. Typically drinks Boost at home; agreeable to ensure enlive TIDWM; MD and dietary notified. Daughter reports mainly drinks 1 boost a day and has some fruit recently at home. Pt has no significant edema/wounds, no significant weakness, noted, no visual appearance of muscle/fat wasting, and no reliable wt hx given current wt is pt stated and does not very from only other admit December of this year. At this time pt does not qualify for malnutrition; will monitor for additional criteria this admit. Addendum: 01/14/19 at [address] Amended: Links added.
[2019-01-14] MEDS ORDERED: lactose-reduced food (Ensure Enlive) - 237ml bottle PO SCH (18:00)
--- NOTE | 2019-01-14 18:24 | NUR ---
Problems reprioritized. Patient report given, questions answered & plan of care reviewed with Olivier GAMBLE.
[2019-01-14] MEDS: atorvastatin 20mg tablet PO SCH (20:32)
[2019-01-14] MEDS ORDERED: warfarin 3mg tablet PO ONE (21:00)
[2019-01-15] MEDS: midodrine 5mg tablet PO SCH ×3 (00:34→16:49)
--- NOTE | 2019-01-15 01:00 | NUR ---
Patient extremely short of breath with extremely wet breath sounds, paged Dr. Guajardo. One time order of 10mg lasix placed. Medication given. Rapid response called due to severe shortness of breath. Additional 30mg of Lasix give, ABG done, patient started on Bipap.
[2019-01-15] MEDS ORDERED: furosemide 20 MG/2 ML vial IV ONE (01:10)
[2019-01-15 01:25] LABS: ABG HCO3 22.7 mmol/L (22.0-26.0); ABG OXYGEN SATURATION 95.4 % (95-98); ABG PH (T) 7.254 (7.350-7.450); ABG PO2 (T) 91.4 mmHg (83-108); ALLEN'S TEST Positive; FCOHb 0.3 % (0.5-1.5); FMetHb 0.2 % (0.3-1.12); FO2Hb 94.9 % (94-100); PATIENT TEMPERATURE 36.2; TOTAL HEMOGLOBIN 12.2 G/dl (14.0-18.0)
[2019-01-15] MEDS ORDERED: furosemide 40mg/4ml inj ONE (01:29)
[2019-01-15] MEDS ORDERED: furosemide 40mg/4ml inj IV ONE ×2 (01:30→01:35)
--- NOTE | 2019-01-15 02:12 | NUR ---
PAGER ID: [phone] MESSAGE: Olivier GAMBLE ext [phone] Jesús Kay [id number] Patient still working extremely hard to breath, HR 120, RR 33, BP 137/95, has not produced any urine since total of 40mg Lasix. Could Ativan benefit patient to decrease anxiety?
--- NOTE | 2019-01-15 02:15 | NUR ---
Dr Guajardo at bedside, ordered 1mg ativan IV one time dose for agitation r/t SOB and increase work of breathing
[2019-01-15] MEDS ORDERED: LORazepam 2 mg/ml vial IV ONE (02:20)
[2019-01-15 03:00] VITALS: BP 136/83
[2019-01-15 03:46] LABS: ABG HCO3 24.4 mmol/L (22.0-26.0); ABG OXYGEN SATURATION 94.7 % (95-98); ABG PCO2 (T) 38.2 mmHg (35.0-48.0); ABG PH (T) 7.422 (7.350-7.450); ABG PO2 (T) 75.8 mmHg (83-108); ALLEN'S TEST Positive; FCOHb 0.3 % (0.5-1.5); FMetHb 0.2 % (0.3-1.12); FO2Hb 94.2 % (94-100); MINUTE VOLUME 26 L/min; PATIENT TEMPERATURE 36.8; RESPIRATORY RATE 18 b/min; RESPIRATORY RATE (OBSERVED) 18 b/min; TOTAL HEMOGLOBIN 11.5 G/dl (14.0-18.0)
--- NOTE | 2019-01-15 04:40 | NUR ---
Patient resting comfortably FiO2 now at 60% satuation is 95-97%, respirations are 20-24. Patient is resting comfortably work of breathing greatly decreased. Will continue to monitor closely
--- NOTE | 2019-01-15 06:35 | NUR ---
Problems reprioritized. Patient report given, questions answered & plan of care reviewed with Luann GAMBLE.
--- NOTE | 2019-01-15 06:41 | NUR ---
Patient in room PCU 3027. I have received report from Olivier GAMBLE and had the opportunity to ask questions and assume patient care. Patient is resting in bed, no c/o of SOB. Placed on 2L NC and repositioned. Will continue to monitor patient.
[2019-01-15 07:00] VITALS: BP 91/57
[2019-01-15 07:10] LABS: BASOPHILS # (AUTO) 0.1 X10'3 (0-0.2); BASOPHILS % (AUTO) 0.5 % (0-1); EOSINOPHILS % (AUTO) 0.2 % (0-6); HEMATOCRIT 30.5 % (42.0-52.0); HEMOGLOBIN 10.4 g/dl (14.0-17.9); LYMPHOCYTES % (AUTO) 9.6 % (21-51); MEAN CORPUSCULAR HEMOGLOBIN 31.8 PG (27.0-31.0); MEAN CORPUSCULAR VOLUME 93.5 FL (78-98); MEAN PLATELET VOLUME 8.4 FL (7.4-10.4); MONOCYTES % (AUTO) 9.3 % (2-12); NEUTROPHILS # (AUTO) 8.8 X10'3 (1.8-7.7); NEUTROPHILS % (AUTO) 80.4 % (42-75); PLATELET COUNT 310 X10'3 (140-440); RED BLOOD COUNT 3.26 X10'6 (4.70-6.10); RED CELL DISTRIBUTION WIDTH 15.7 % (11.5-14.5); WHITE BLOOD COUNT 10.9 X10'3 (4.5-11.0)
[2019-01-15 07:19] LABS: INR 1.4 INR; PROTHROMBIN TIME 13.7 SECONDS (9.0-12.0)
[2019-01-15 07:33] LABS: ALANINE AMINOTRANSFERASE 23 U/L (12-78); ALBUMIN 2.4 G/DL (3.4-5.0); ALBUMIN/GLOBULIN RATIO 0.8 (1.1-1.5); ALKALINE PHOSPHATASE 88 IU/L (46-116); ANION GAP 8 (8-16); ASPARTATE AMINO TRANSFERASE 20 U/L (10-37); BILIRUBIN,TOTAL 0.5 MG/DL (0.1-1.0); BLOOD UREA NITROGEN 17 MG/DL (7-18); BUN/CREATININE RATIO 11.3 (5.4-32.0); CALCIUM 8.4 MG/DL (8.5-10.1); CHLORIDE 106 MMOL/L (99-107); GLUCOSE 109 MG/DL (70-104); MAGNESIUM 2.1 MG/DL (1.5-2.4); POTASSIUM 4.3 MMOL/L (3.5-5.1); SODIUM 141 MMOL/L (135-145); TOTAL CARBON DIOXIDE 27.2 MMOL/L (24-32); TOTAL PROTEIN 5.5 G/DL (6.4-8.2); eGFR 46 ML/MIN
[2019-01-15] MEDS ORDERED: furosemide 20 MG/2 ML vial IV SCH (08:00)
[2019-01-15] MEDS: K and/or MAG REPLACEMENT MC SCH (08:00)
[2019-01-15] MEDS: guaiFENesin ER 600mg tablet PO SCH ×2 (08:38→20:51)
[2019-01-15] MEDS: levoTHYROXINE 25mcg tablet PO SCH (08:38)
[2019-01-15] MEDS: clopidogrel 75mg tablet PO SCH (08:39)
[2019-01-15] MEDS: famotidine 20mg tablet PO SCH ×2 (08:39→20:51)
[2019-01-15] MEDS: amiodarone 200mg tablet PO SCH (08:39)
--- NOTE | 2019-01-15 08:56 | NUR ---
Page sent to Dr. Moreno: PAGER ID: [phone] MESSAGE: [id number] Jesús Kay: BP is 96/51, 20mg Lasix is ordered, would you like it to be given? Thanks, Luann [phone]
[2019-01-15 11:00] VITALS: BP 85/47
[2019-01-15 15:00] VITALS: BP 90/56
[2019-01-15] MEDS: furosemide 10 MG/1 ML 10ml inj IV SCH ×2 (16:49→20:53)
[2019-01-15 18:00] VITALS: BP 86/62
--- NOTE | 2019-01-15 18:14 | NUR ---
Problems reprioritized. Patient report given, questions answered & plan of care reviewed with Jessica GAMBLE. Bedside report complete, patient currently on Bipap. Stable at transfer of care.
--- NOTE | 2019-01-15 18:40 | NUR ---
Problems reprioritized. Patient report given, questions answered & plan of care reviewed with Kulwinder GAMBLE. pt is AAO, On bipap at 45%, only eat 25% of sweet potatoes, resting on bed
--- NOTE | 2019-01-15 18:57 | NUR ---
Orientee documentation: I have reviewed and agree with all interventions, assessments performed and documented by Sue GAMBLE. Orientee Medication Administration: For this medication-pass time frame, all medication were reviewed, dispensed, administered and documented per hospital policy by Sue GAMBLE.
[2019-01-15] MEDS: atorvastatin 20mg tablet PO SCH (20:51)
[2019-01-15] MEDS ORDERED: warfarin 3mg tablet PO ONE (21:00)
[2019-01-15 23:00] VITALS: BP 85/57
[2019-01-16] MEDS: midodrine 5mg tablet PO SCH ×2 (01:05→07:12)
[2019-01-16] MEDS: furosemide 10 MG/1 ML 10ml inj IV SCH ×2 (02:00→08:00)
[2019-01-16 03:00] VITALS: BP 89/56
--- NOTE | 2019-01-16 03:46 | NUR ---
held senia bp 87/61, HR68
[2019-01-16 05:42] LABS: BASOPHILS % (AUTO) 0.6 % (0-1); EOSINOPHILS # (AUTO) 0.1 X10'3 (0-0.9); EOSINOPHILS % (AUTO) 1.4 % (0-6); HEMATOCRIT 27.9 % (42.0-52.0); HEMOGLOBIN 9.2 g/dl (14.0-17.9); LYMPHOCYTES # (AUTO) 2.5 X10'3 (1.1-4.8); LYMPHOCYTES % (AUTO) 34.8 % (21-51); MEAN CORPUSCULAR HEMOGLOBIN 31.1 PG (27.0-31.0); MEAN CORPUSCULAR VOLUME 94.2 FL (78-98); MEAN PLATELET VOLUME 8.1 FL (7.4-10.4); MONOCYTES # (AUTO) 0.7 X10'3 (0-0.9); MONOCYTES % (AUTO) 9.6 % (2-12); NEUTROPHILS # (AUTO) 3.8 X10'3 (1.8-7.7); NEUTROPHILS % (AUTO) 53.6 % (42-75); PLATELET COUNT 261 X10'3 (140-440); RED BLOOD COUNT 2.96 X10'6 (4.70-6.10); RED CELL DISTRIBUTION WIDTH 15.8 % (11.5-14.5); WHITE BLOOD COUNT 7.2 X10'3 (4.5-11.0)
[2019-01-16 06:01] LABS: ALANINE AMINOTRANSFERASE 19 U/L (12-78); ALBUMIN 2.2 G/DL (3.4-5.0); ALBUMIN/GLOBULIN RATIO 0.8 (1.1-1.5); ALKALINE PHOSPHATASE 77 IU/L (46-116); ANION GAP 6 (8-16); ASPARTATE AMINO TRANSFERASE 17 U/L (10-37); BILIRUBIN,TOTAL 0.7 MG/DL (0.1-1.0); BLOOD UREA NITROGEN 21 MG/DL (7-18); CALCIUM 8.2 MG/DL (8.5-10.1); CHLORIDE 106 MMOL/L (99-107); CREATININE 1.31 MG/DL (0.60-1.10); GLUCOSE 97 MG/DL (70-104); POTASSIUM 3.5 MMOL/L (3.5-5.1); SODIUM 139 MMOL/L (135-145); TOTAL CARBON DIOXIDE 27.4 MMOL/L (24-32); TOTAL PROTEIN 5.1 G/DL (6.4-8.2); eGFR 54 ML/MIN
[2019-01-16 06:04] LABS: INR 1.9 INR; PROTHROMBIN TIME 18.7 SECONDS (9.0-12.0)
--- NOTE | 2019-01-16 06:30 | NUR ---
Patient in room PCU 3027. I have received report from Jessica GAMBLE and had the opportunity to ask questions and assume patient care.
--- NOTE | 2019-01-16 06:43 | NUR ---
PAGER ID: [phone] MESSAGE: Adelfo Singh, pt jesús Espinosa [id number] BP has been running low on the 80 systolic since 3 am, last BP was 82/52 map of 59, asymptomatic. Thanks, Jessica GAMBLE [phone] Addendum: 01/16/19 at 0647 by Jessica Tracy RN Dr. Guajardo aware, he wanted to let the AM decides about pt plan of care
--- NOTE | 2019-01-16 06:45 | NUR ---
Noc nurseJessica made day shift nurses aware of notification to noc doctor re: low map, he states to make am doctor aware of this for intervention.
--- NOTE | 2019-01-16 06:47 | NUR ---
Problems reprioritized. Patient report given, questions answered & plan of care reviewed with Francine GAMBLE.
[2019-01-16 07:00] VITALS: BP 80/50
[2019-01-16 07:05] VITALS: BP 82/52
[2019-01-16] MEDS: levoTHYROXINE 25mcg tablet PO SCH (07:13)
[2019-01-16] MEDS ORDERED: metolazone 2.5mg tablet PO SCH (08:00)
[2019-01-16] MEDS: K and/or MAG REPLACEMENT MC SCH (08:00)
--- NOTE | 2019-01-16 08:30 | NUR ---
PAGER ID: [phone] MESSAGE: [id number] Jesús Kay please call re: low map Daniela [phone] received call back ok to hold Lasix if SBP below 90
[2019-01-16] MEDS: famotidine 20mg tablet PO SCH (09:33)
[2019-01-16] MEDS: amiodarone 200mg tablet PO SCH (09:33)
[2019-01-16] MEDS: clopidogrel 75mg tablet PO SCH (09:33)
[2019-01-16] MEDS: guaiFENesin ER 600mg tablet PO SCH (09:33)
[2019-01-16] MEDS ORDERED: predniSONE 20 mg tablet PO ONE (09:50)
[2019-01-16 11:00] VITALS: BP 107/51
[2019-01-16] MEDS ORDERED: furosemide 20 MG/2 ML vial IV SCH (14:37)
--- NOTE | 2019-01-16 14:48 | NUR ---
Called report to Edel GAMBLE at [facility], transport will be here at 1515 for pickup.
[2019-01-16] MEDS ORDERED: morphine 2 MG/ML inj. syringe IV PRN ×2 (15:28)
--- NOTE | 2019-01-16 15:35 | NUR ---
Discharged at this time without event, Jaden escorted via W/C to [facility]. Family took belongings to [facility]. Patient eager to go to rehab. IV dc'd, canula intact, mobile tele removed.
[2019-01-16] MEDS ORDERED: warfarin 1mg tablet PO ONE (21:00)
== END 2019-01-16 16:08 | DRG 280 ==
LOC: ER 23:19 → ED HOLD 01-13 01:14 → EDBEDREQ 01-13 05:34 → PCU 3S 01-13 07:42
PROVIDERS: ADMIT Family Medicine; ATTEND Internal Medicine
PROC: 3E0234Z Introduction of Serum, Toxoid and Vaccine into Muscle, Percutaneous Approach (ICD-10-PCS; 2019-01-14)
PROC: 4A12XM4 Monitoring of Cardiac Stress, External Approach (ICD-10-PCS; 2019-01-14)
PROC: 3E033HZ Introduction of Radioactive Substance into Peripheral Vein, Percutaneous Approach (ICD-10-PCS; 2019-01-14)
PROC: 5A09357 Assistance with Respiratory Ventilation, Less than 24 Consecutive Hours, Continuous Positive Airway Pressure (ICD-10-PCS; principal; 2019-01-15)
PROC: 5A09357 Assistance with Respiratory Ventilation, Less than 24 Consecutive Hours, Continuous Positive Airway Pressure (ICD-10-PCS; 2019-01-16)
DX: I13.0 Hypertensive heart and chronic kidney disease with heart failure and stage 1 through stage 4 chronic kidney disease, or unspecified chronic kidney disease (principal); I21.A1 Myocardial infarction type 2; J96.20 Acute and chronic respiratory failure, unspecified whether with hypoxia or hypercapnia; I50.43 Acute on chronic combined systolic (congestive) and diastolic (congestive) heart failure; E87.2 Acidosis; N17.9 Acute kidney failure, unspecified; I27.20 Pulmonary hypertension, unspecified; I48.0 Paroxysmal atrial fibrillation; N18.3 Chronic kidney disease, stage 3 (moderate); E78.5 Hyperlipidemia, unspecified; E03.9 Hypothyroidism, unspecified; E78.00 Pure hypercholesterolemia, unspecified; I95.89 Other hypotension; K74.60 Unspecified cirrhosis of liver; I25.10 Atherosclerotic heart disease of native coronary artery without angina pectoris; I48.2 Chronic atrial fibrillation; J44.9 Chronic obstructive pulmonary disease, unspecified; K21.9 Gastro-esophageal reflux disease without esophagitis; I25.2 Old myocardial infarction; Z95.5 Presence of coronary angioplasty implant and graft; Z79.01 Long term (current) use of anticoagulants; Z87.891 Personal history of nicotine dependence; Z82.3 Family history of stroke; Z82.49 Family history of ischemic heart disease and other diseases of the circulatory system; Z71.6 Tobacco abuse counseling; Z23 Encounter for immunization; Z71.41 Alcohol abuse counseling and surveillance of alcoholic
CPT/HCPCS: 36415; 36600; 71045; 78451; 80053; 80061; 81003; 82088; 82803; 83735; 83880; 84132; 84443; 84484; 85018; 85025; 85610; 85730; 87070; 93005; 94660; 94760; 96374; 99285; A9500; G0378; J0280; J1940; J2060; J7512

== ENCOUNTER 2019-01-26 23:01 | Inpatient (IN) | payer MEDICARE, BC ==
[~2019-01-26] VITALS: Ht 188 cm; Wt 104.0 kg
[~2019-01-26 23:01] MED LIST changes: +GUAI600T45 PO
[2019-01-26] MEDS ORDERED: LORazepam 2 mg/ml vial IV ONE (23:05)
[2019-01-26] MEDS ORDERED: ipratropium/albuterol 3ml nebule NEB ONE (23:05)
[2019-01-26] MEDS ORDERED: methylPREDNISolone sod succ 125mg/2ml vial IV ONE (23:05)
[2019-01-26] MEDS ORDERED: furosemide 10 MG/1 ML 10ml inj IV ONE (23:15)
[2019-01-26] MEDS ORDERED: nitroGLYCERIN 0.4mg SUBLingual tab SL PRN (23:15)
[2019-01-26 23:21] LABS: BASOPHILS # (AUTO) 0.1 X10'3 (0-0.2); BASOPHILS % (AUTO) 0.5 % (0-1); EOSINOPHILS % (AUTO) 0.2 % (0-6); HEMATOCRIT 33.6 % (42.0-52.0); HEMOGLOBIN 10.8 g/dl (14.0-17.9); LYMPHOCYTES # (AUTO) 3.8 X10'3 (1.1-4.8); LYMPHOCYTES % (AUTO) 21.6 % (21-51); MEAN CORPUSCULAR HEMOGLOBIN 30.2 PG (27.0-31.0); MEAN CORPUSCULAR HGB CONC 32.2 g/dL (33.0-36.5); MEAN CORPUSCULAR VOLUME 93.8 FL (78-98); MEAN PLATELET VOLUME 8.2 FL (7.4-10.4); MONOCYTES # (AUTO) 1.7 X10'3 (0-0.9); MONOCYTES % (AUTO) 9.7 % (2-12); NEUTROPHILS # (AUTO) 11.8 X10'3 (1.8-7.7); PLATELET COUNT 319 X10'3 (140-440); RED BLOOD COUNT 3.58 X10'6 (4.70-6.10); RED CELL DISTRIBUTION WIDTH 16.2 % (11.5-14.5); WHITE BLOOD COUNT 17.4 X10'3 (4.5-11.0)
[2019-01-26 23:35] LABS: ALANINE AMINOTRANSFERASE 47 U/L (12-78); ALBUMIN 2.8 G/DL (3.4-5.0); ALBUMIN/GLOBULIN RATIO 0.8 (1.1-1.5); ALKALINE PHOSPHATASE 113 IU/L (46-116); ANION GAP 10 (8-16); ASPARTATE AMINO TRANSFERASE 33 U/L (10-37); BILIRUBIN,TOTAL 0.8 MG/DL (0.1-1.0); BLOOD UREA NITROGEN 19 MG/DL (7-18); BUN/CREATININE RATIO 12.6 (5.4-32.0); CALCIUM 8.6 MG/DL (8.5-10.1); CHLORIDE 100 MMOL/L (99-107); CREATININE 1.51 MG/DL (0.60-1.10); GLUCOSE 198 MG/DL (70-104); POTASSIUM 4.3 MMOL/L (3.5-5.1); SODIUM 136 MMOL/L (135-145); TOTAL CARBON DIOXIDE 26.1 MMOL/L (24-32); TOTAL PROTEIN 6.3 G/DL (6.4-8.2); eGFR 46 ML/MIN
[2019-01-26] MEDS ORDERED: nitroGLYCERIN 1gm ointment UD TP ONE (23:35)
[2019-01-26 23:44] LABS: INR 1.4 INR; PARTIAL THROMBOPLASTIN TIME 30 SECONDS (22-32)
[2019-01-26 23:56] LABS: ABG BASE EXCESS -3.3 mmol/L (-2.0-3.0); ABG OXYGEN SATURATION 95.4 % (95-98); ABG PCO2 (T) 34.2 mmHg (35.0-48.0); ABG PH (T) 7.404 (7.350-7.450); ABG PO2 (T) 82.6 mmHg (83-108); FCOHb 0.6 % (0.5-1.5); FMetHb 0.2 % (0.3-1.12); FO2Hb 94.6 % (94-100); PATIENT TEMPERATURE 36.6; RESPIRATORY RATE 18 b/min; RESPIRATORY RATE (OBSERVED) 40 b/min; TOTAL HEMOGLOBIN 11.1 G/dl (14.0-18.0)
[2019-01-27] MEDS ORDERED: acetaminophen 325mg tablet PO PRN (01:10)
[2019-01-27] MEDS ORDERED: magnesium hydroxide 30ml (MOM) UD suspension PO PRN (01:10)
[2019-01-27] MEDS ORDERED: ondansetron/PF 4mg/2ml inj IV PRN (01:10)
[2019-01-27] MEDS ORDERED: mag hydrox/Alum hydrox/simeth 30ml oral suspension PO PRN (01:10)
--- NOTE | 2019-01-27 01:23 | NUR ---
Bret, patient's son: [phone]
--- NOTE | 2019-01-27 01:55 | NUR ---
kPatient in room . I have received report from TECHNICAL TRAINING COORDINATOR and had the opportunity to ask questions and assume patient care.
--- NOTE | 2019-01-27 02:08 | NUR ---
REPORT CALLED TO VONNIE GAMBLE, CASE DISCUSSED, LABS REVIWED, PT TO BE TRANSPORTED WITH BELONGINGS TO THE FLOOR.
--- NOTE | 2019-01-27 02:52 | NUR ---
pt arrived on bipap. transferred into bed. he had a dressing on coccyx that was peeling up. redness and breakdown noted, new optifoam applied. Pics deferred for now due to resp status.
--- NOTE | 2019-01-27 02:58 | NUR ---
pt stated his baseline BP is mid to high 80s now. Per MD, lasix parameters can be changed to hold SBP<85
[2019-01-27 03:00] VITALS: BP 87/58
[2019-01-27 06:00] VITALS: BP 83/56
[2019-01-27] MEDS ORDERED: LORA-269 PO (07:28)
[2019-01-27] MEDS ORDERED: WARF1TAB PO (07:29)
[2019-01-27] MEDS ORDERED: DOCU-28 PO (07:30)
[2019-01-27] MEDS ORDERED: IPRA3AMP9 IH (07:31)
[2019-01-27] MEDS ORDERED: FAMO-128 PO (07:33)
[2019-01-27] MEDS: levoTHYROXINE 25mcg tablet PO SCH (08:21)
[2019-01-27] MEDS: clopidogrel 75mg tablet PO SCH (08:21)
[2019-01-27] MEDS: midodrine 5mg tablet PO SCH ×2 (08:22→14:59)
[2019-01-27] MEDS: amiodarone 200mg tablet PO SCH (08:22)
[2019-01-27] MEDS: potassium Cl 20 mEq SR tablet PO SCH (08:22)
[2019-01-27] MEDS: furosemide 20MG tablet PO SCH ×2 (08:22→19:16)
[2019-01-27] MEDS: guaiFENesin ER 600mg tablet PO SCH ×2 (08:23→19:15)
[2019-01-27] MEDS: cefepime 2g/NS 100ml ADVANTAGE 100 ML IV SCH ×2 (09:30→19:14)
[2019-01-27 14:45] LABS: INR 1.3 INR
[2019-01-27 15:00] VITALS: BP 89/57
[2019-01-27 18:00] VITALS: BP 100/63
--- NOTE | 2019-01-27 18:30 | NUR ---
Patient in room PCU 3026. I have received report from wesley chin and had the opportunity to ask questions and assume patient care.
--- NOTE | 2019-01-27 19:12 | NUR ---
pt requesting all evening meds now.
[2019-01-27] MEDS: lactobacillus rhamnosus 10,000 MMU CELLS/CAPSULE PO SCH (19:14)
[2019-01-27] MEDS: LORazepam 0.5 MG tablet PO PRN (19:17)
[2019-01-27 20:00] VITALS: BP_SYST 128; BP_SYST 90; BP_DIAS 70; BP_DIAS 80
[2019-01-27] MEDS ORDERED: ipratropium/albuterol 3ml nebule ONE (20:48)
[2019-01-27] MEDS ORDERED: ipratropium/albuterol 3ml nebule NEB PRN (20:50)
[2019-01-27] MEDS ORDERED: albuterol 2.5 MG/3 ML nebule NEB PRN (20:55)
[2019-01-27] MEDS: atorvastatin 20mg tablet PO SCH (21:00)
[2019-01-27] MEDS ORDERED: warfarin 1mg tablet PO ONE (21:00)
[2019-01-27] MEDS ORDERED: furosemide 40mg/4ml inj IV ONE ×2 (21:20→22:55)
[2019-01-27 22:00] VITALS: BP 90/70
--- NOTE | 2019-01-27 22:13 | NUR ---
pt had episode of SOB. notifed , IV lasix 40 mg given. pt now resting, no longer tripoding. BP back to his baseline and heart down into the 90s from 120-130s. respirations now low 20s, down from high 30s. pt stated he is feeling better. bladder scan being done now
--- NOTE | 2019-01-27 22:26 | NUR ---
pt stated that he has not had a consult by thiokol operator yet.
--- NOTE | 2019-01-27 22:33 | NUR ---
pt stated he feels like he is getting SOB again. on bipap. not tripoding yet though. feet more swollen after he had them down so long
[2019-01-27] MEDS: ipratropium/albuterol 3ml nebule NEB SCH (23:06)
--- NOTE | 2019-01-27 23:45 | NUR ---
resting well, respirations below 20
[2019-01-28] VITALS (10 sets, daily range): BP systolic 83–120; BP diastolic 54–89
[2019-01-28] MEDS: ipratropium/albuterol 3ml nebule NEB SCH ×6 (02:49→23:15)
[2019-01-28] MEDS: midodrine 5mg tablet PO SCH ×3 (02:53→16:10)
--- NOTE | 2019-01-28 05:00 | NUR ---
this delightful patient rang his call light to remind us his blood pressure cuff wasn't on and he figured it was about time it went off. thank you for assigning me to take care of this patient!
--- NOTE | 2019-01-28 06:12 | NUR ---
Problems reprioritized. Patient report given, questions answered & plan of care reviewed with Annie and Nate RNs.
--- NOTE | 2019-01-28 06:14 | NUR ---
Patient in room PCU 3026. I have received report from MAVIS Keller and had the opportunity to ask questions and assume patient care.
[2019-01-28 06:24] LABS: BASOPHILS % (AUTO) 0.2 % (0-1); EOSINOPHILS % (AUTO) 0.1 % (0-6); HEMATOCRIT 29.5 % (42.0-52.0); HEMOGLOBIN 9.5 g/dl (14.0-17.9); LYMPHOCYTES # (AUTO) 0.9 X10'3 (1.1-4.8); LYMPHOCYTES % (AUTO) 5.3 % (21-51); MEAN CORPUSCULAR HEMOGLOBIN 30.4 PG (27.0-31.0); MEAN CORPUSCULAR HGB CONC 32.3 g/dL (33.0-36.5); MEAN CORPUSCULAR VOLUME 94.2 FL (78-98); MEAN PLATELET VOLUME 8.3 FL (7.4-10.4); MONOCYTES # (AUTO) 1.3 X10'3 (0-0.9); MONOCYTES % (AUTO) 7.9 % (2-12); NEUTROPHILS # (AUTO) 14.7 X10'3 (1.8-7.7); NEUTROPHILS % (AUTO) 86.5 % (42-75); PLATELET COUNT 265 X10'3 (140-440); RED BLOOD COUNT 3.13 X10'6 (4.70-6.10)
[2019-01-28 06:35] LABS: ALANINE AMINOTRANSFERASE 40 U/L (12-78); ALBUMIN 2.5 G/DL (3.4-5.0); ALBUMIN/GLOBULIN RATIO 0.8 (1.1-1.5); ALKALINE PHOSPHATASE 83 IU/L (46-116); ANION GAP 13 (8-16); ASPARTATE AMINO TRANSFERASE 17 U/L (10-37); BILIRUBIN,TOTAL 0.5 MG/DL (0.1-1.0); BLOOD UREA NITROGEN 30 MG/DL (7-18); BUN/CREATININE RATIO 19.9 (5.4-32.0); CALCIUM 8.7 MG/DL (8.5-10.1); CHLORIDE 102 MMOL/L (99-107); CREATININE 1.51 MG/DL (0.60-1.10); GLUCOSE 139 MG/DL (70-104); SODIUM 138 MMOL/L (135-145); TOTAL CARBON DIOXIDE 23.3 MMOL/L (24-32); TOTAL PROTEIN 5.7 G/DL (6.4-8.2); eGFR 46 ML/MIN
[2019-01-28 06:44] LABS: INR 1.6 INR
[2019-01-28] MEDS: cefepime 2g/NS 100ml ADVANTAGE 100 ML IV SCH ×2 (08:08→21:26)
[2019-01-28] MEDS: levoTHYROXINE 25mcg tablet PO SCH (08:09)
[2019-01-28] MEDS: lactobacillus rhamnosus 10,000 MMU CELLS/CAPSULE PO SCH ×2 (08:09→21:19)
[2019-01-28] MEDS: furosemide 20MG tablet PO SCH (08:09)
[2019-01-28] MEDS: guaiFENesin ER 600mg tablet PO SCH ×2 (08:10→20:00)
[2019-01-28] MEDS: amiodarone 200mg tablet PO SCH (08:10)
[2019-01-28] MEDS: predniSONE 20 mg tablet PO SCH (08:11)
[2019-01-28] MEDS: clopidogrel 75mg tablet PO SCH (08:12)
[2019-01-28] MEDS: potassium Cl 20 mEq SR tablet PO SCH (08:12)
--- NOTE | 2019-01-28 15:26 | NUR ---
Paged Dr. Velez re pt's request for a substitution for prednisone. Pt states he lost weight when he was on prednisone in the past due to decreased appetite. PAGER ID: [phone] MESSAGE: Pt Jesús Kay feels his new prednisone hurts his appetite. Wondering if there's a substitution? Thanks! Annie GAMBLE [phone]
--- NOTE | 2019-01-28 17:38 | NUR ---
Paged Dr. Velez re pt's request for IV Lasix. PAGER ID: [phone] MESSAGE: Pt Jesús Kay in [id number]. Pt agitated, asking for IV Lasix. Thanks! Annie GAMBLE [phone]
[2019-01-28] MEDS: LORazepam 0.5 MG tablet PO PRN (17:42)
--- NOTE | 2019-01-28 17:53 | NUR ---
Lorenza Velez re SOB & increased RR. PAGER ID: [phone] MESSAGE: Pt Jesús Kay in [id number] feels SOB & in distress. RR 40. Ativan given. Pt requesting IV Lasix now. Can we have 1 time dose? Thanks! Annie GAMBLE [phone] Addendum: 01/28/19 at 1815 by Yeimy Rg RN Dr. Velez ordered IV Lasix 40mg IV push once & CXR.
[2019-01-28] MEDS ORDERED: furosemide 40mg/4ml inj IV ONE (17:55)
--- NOTE | 2019-01-28 18:14 | NUR ---
Paged RT re pt in respiratory distress per Dr. Velez.
--- NOTE | 2019-01-28 18:48 | NUR ---
Pt became increasingly distressed beginning at 1730. BiPap on, pt's heart rate in the 120s, RR in the 30s. Pt visibly anxious, sweating & asking for IV Lasix. Pt stated "That's the only thing that will work". Ativan given. Dr. Velez pagebeverly & orders received for IV Lasix, a chest x-ray & RT consult. At 1815, pt becoming less distressed, RT in room providing treatment. Report given to oncoming RN.
--- NOTE | 2019-01-28 18:53 | NUR ---
Problems reprioritized. Patient report given, questions answered & plan of care reviewed with MAVIS Fraire.
[2019-01-28] MEDS: furosemide 20 MG/2 ML vial IV SCH (20:00)
[2019-01-28] MEDS ORDERED: warfarin 1mg tablet PO ONE (21:00)
[2019-01-28] MEDS: atorvastatin 20mg tablet PO SCH (21:20)
[2019-01-29] VITALS (9 sets, daily range): BP systolic 81–132; BP diastolic 50–87
[2019-01-29] MEDS: midodrine 5mg tablet PO SCH ×4 (00:12→23:44)
[2019-01-29] MEDS: ipratropium/albuterol 3ml nebule NEB SCH ×6 (02:17→22:49)
[2019-01-29 04:19] LABS: BASOPHILS % (AUTO) 0.1 % (0-1); EOSINOPHILS % (AUTO) 0 % (0-6); HEMATOCRIT 28.1 % (42.0-52.0); LYMPHOCYTES # (AUTO) 1.8 X10'3 (1.1-4.8); LYMPHOCYTES % (AUTO) 11.5 % (21-51); MEAN CORPUSCULAR HGB CONC 31.9 g/dL (33.0-36.5); MEAN CORPUSCULAR VOLUME 93.9 FL (78-98); MEAN PLATELET VOLUME 8.4 FL (7.4-10.4); MONOCYTES # (AUTO) 1.5 X10'3 (0-0.9); MONOCYTES % (AUTO) 9.5 % (2-12); NEUTROPHILS # (AUTO) 12.3 X10'3 (1.8-7.7); NEUTROPHILS % (AUTO) 78.9 % (42-75); PLATELET COUNT 256 X10'3 (140-440); RED BLOOD COUNT 2.99 X10'6 (4.70-6.10); RED CELL DISTRIBUTION WIDTH 16.1 % (11.5-14.5); WHITE BLOOD COUNT 15.6 X10'3 (4.5-11.0)
[2019-01-29 04:35] LABS: ALANINE AMINOTRANSFERASE 42 U/L (12-78); ALBUMIN 2.2 G/DL (3.4-5.0); ALBUMIN/GLOBULIN RATIO 0.7 (1.1-1.5); ALKALINE PHOSPHATASE 103 IU/L (46-116); ANION GAP 6 (8-16); ASPARTATE AMINO TRANSFERASE 21 U/L (10-37); BILIRUBIN,TOTAL 0.6 MG/DL (0.1-1.0); BLOOD UREA NITROGEN 33 MG/DL (7-18); BUN/CREATININE RATIO 22.8 (5.4-32.0); CALCIUM 8.3 MG/DL (8.5-10.1); CHLORIDE 107 MMOL/L (99-107); CREATININE 1.45 MG/DL (0.60-1.10); GLUCOSE 106 MG/DL (70-104); INR 2.4 INR; POTASSIUM 4.3 MMOL/L (3.5-5.1); SODIUM 142 MMOL/L (135-145); TOTAL CARBON DIOXIDE 28.6 MMOL/L (24-32); TOTAL PROTEIN 5.4 G/DL (6.4-8.2); eGFR 48 ML/MIN
--- NOTE | 2019-01-29 06:40 | NUR ---
Patient in room PCU 3026. I have received report from Yee GAMBLE and had the opportunity to ask questions and assume patient care.
[2019-01-29] MEDS: potassium Cl 20 mEq SR tablet PO SCH (08:00)
[2019-01-29] MEDS: furosemide 20 MG/2 ML vial IV SCH ×2 (08:00→19:21)
[2019-01-29] MEDS: clopidogrel 75mg tablet PO SCH (08:44)
[2019-01-29] MEDS: guaiFENesin ER 600mg tablet PO SCH ×2 (08:44→20:09)
[2019-01-29] MEDS: levoTHYROXINE 25mcg tablet PO SCH (08:44)
[2019-01-29] MEDS: amiodarone 200mg tablet PO SCH (08:44)
[2019-01-29] MEDS: lactobacillus rhamnosus 10,000 MMU CELLS/CAPSULE PO SCH ×2 (08:44→20:10)
[2019-01-29] MEDS: cefepime 2g/NS 100ml ADVANTAGE 100 ML IV SCH ×2 (08:45→22:04)
[2019-01-29] MEDS: predniSONE 20 mg tablet PO SCH (08:45)
--- NOTE | 2019-01-29 18:25 | NUR ---
Patient in room PCU 3026. I have received report from Lola GAMBLE & Nate RN and had the opportunity to ask questions and assume patient care.
--- NOTE | 2019-01-29 18:28 | NUR ---
Problems reprioritized. Patient report given, questions answered & plan of care reviewed with Karen GAMBLE.
[2019-01-29] MEDS: LORazepam 0.5 MG tablet PO PRN (19:31)
[2019-01-29] MEDS ORDERED: carvedilol 6.25mg tablet PO ONE (20:00)
[2019-01-29] MEDS: atorvastatin 20mg tablet PO SCH (20:09)
[2019-01-29] MEDS ORDERED: LORazepam 2 mg/ml vial IV ONE (20:40)
[2019-01-29] MEDS ORDERED: furosemide 40mg/4ml inj IV ONE (20:40)
[2019-01-30 03:00] VITALS: BP 81/56
[2019-01-30] MEDS: ipratropium/albuterol 3ml nebule NEB SCH ×3 (03:13→11:22)
[2019-01-30 05:18] LABS: BASOPHILS % (AUTO) 0.1 % (0-1); EOSINOPHILS % (AUTO) 0.1 % (0-6); HEMATOCRIT 28.7 % (42.0-52.0); HEMOGLOBIN 9.2 g/dl (14.0-17.9); LYMPHOCYTES # (AUTO) 1.7 X10'3 (1.1-4.8); LYMPHOCYTES % (AUTO) 9.6 % (21-51); MEAN CORPUSCULAR HEMOGLOBIN 30.1 PG (27.0-31.0); MEAN CORPUSCULAR HGB CONC 32.1 g/dL (33.0-36.5); MEAN CORPUSCULAR VOLUME 93.8 FL (78-98); MEAN PLATELET VOLUME 8.5 FL (7.4-10.4); MONOCYTES # (AUTO) 1.3 X10'3 (0-0.9); MONOCYTES % (AUTO) 7.4 % (2-12); NEUTROPHILS % (AUTO) 82.8 % (42-75); PLATELET COUNT 253 X10'3 (140-440); RED BLOOD COUNT 3.06 X10'6 (4.70-6.10); RED CELL DISTRIBUTION WIDTH 15.9 % (11.5-14.5); WHITE BLOOD COUNT 18.1 X10'3 (4.5-11.0)
[2019-01-30 05:39] LABS: ALANINE AMINOTRANSFERASE 37 U/L (12-78); ALBUMIN 2.2 G/DL (3.4-5.0); ALBUMIN/GLOBULIN RATIO 0.7 (1.1-1.5); ALKALINE PHOSPHATASE 109 IU/L (46-116); ANION GAP 10 (8-16); ASPARTATE AMINO TRANSFERASE 16 U/L (10-37); BILIRUBIN,TOTAL 0.8 MG/DL (0.1-1.0); BLOOD UREA NITROGEN 36 MG/DL (7-18); BUN/CREATININE RATIO 26.3 (5.4-32.0); CALCIUM 8.4 MG/DL (8.5-10.1); CHLORIDE 107 MMOL/L (99-107); CREATININE 1.37 MG/DL (0.60-1.10); GLUCOSE 86 MG/DL (70-104); POTASSIUM 3.9 MMOL/L (3.5-5.1); SODIUM 143 MMOL/L (135-145); TOTAL CARBON DIOXIDE 26.2 MMOL/L (24-32); TOTAL PROTEIN 5.5 G/DL (6.4-8.2); eGFR 51 ML/MIN
[2019-01-30 05:44] LABS: INR 3.7 INR
--- NOTE | 2019-01-30 06:00 | NUR ---
Patient in room PCU 3026. I have received report from Demi GAMBLE and had the opportunity to ask questions and assume patient care.
--- NOTE | 2019-01-30 06:15 | NUR ---
Patient in room PCU 3026. I have received report from Demi GAMBLE and had the opportunity to ask questions and assume patient care. Pt is on BiPap at 40% FiO2 and in no apparent distress, will continue to monitor.
--- NOTE | 2019-01-30 06:20 | NUR ---
Problems reprioritized. Patient report given, questions answered & plan of care reviewed with Lola GAMBLE & Nate RN.
[2019-01-30 07:00] VITALS: BP 86/52
[2019-01-30] MEDS ORDERED: metolazone 2.5mg tablet PO SCH (08:00)
[2019-01-30] MEDS: amiodarone 200mg tablet PO SCH (08:40)
[2019-01-30] MEDS: guaiFENesin ER 600mg tablet PO SCH (08:40)
[2019-01-30] MEDS: potassium Cl 20 mEq SR tablet PO SCH (08:40)
[2019-01-30] MEDS: predniSONE 20 mg tablet PO SCH (08:41)
[2019-01-30] MEDS: levoTHYROXINE 25mcg tablet PO SCH (08:41)
[2019-01-30] MEDS: midodrine 5mg tablet PO SCH (08:41)
[2019-01-30] MEDS: clopidogrel 75mg tablet PO SCH (08:41)
[2019-01-30] MEDS: lactobacillus rhamnosus 10,000 MMU CELLS/CAPSULE PO SCH (08:41)
--- NOTE | 2019-01-30 08:48 | NUR ---
PAGER ID: [phone] MESSAGE: [id number]- Jesús Kay, parameters for Lasix 20mg schedule is hold for SBP <100, pt BP 93/53 would you like me to change the parameters? please call Nate GAMBLE [phone]
[2019-01-30] MEDS: cefepime 2g/NS 100ml ADVANTAGE 100 ML IV SCH (08:49)
[2019-01-30] MEDS: furosemide 20 MG/2 ML vial IV SCH (09:16)
[2019-01-30 11:00] VITALS: BP 84/60
--- NOTE | 2019-01-30 13:28 | NUR ---
Patient report given to Niko GAMBLE at [facility]. Pt will be picked up at today at 1400.
--- NOTE | 2019-01-30 14:00 | NUR ---
Pt transferred to [facility] via [facility]. All of pt's belongings sent with pt. Pt transferred in stable condition on 2L nasal canula.
[2019-01-31] MEDS ORDERED: VANCOMYCIN LEVEL IV ONE (02:30)
== END 2019-01-30 14:00 | DRG 871 ==
LOC: ER 23:01 → PCU 3S 01-27 02:38 → CMPBEDREQ 01-27 02:51
PROVIDERS: ADMIT Internal Medicine; ATTEND Family Medicine
PROC: 5A09357 Assistance with Respiratory Ventilation, Less than 24 Consecutive Hours, Continuous Positive Airway Pressure (ICD-10-PCS; principal; 2019-01-26)
PROC: 5A09357 Assistance with Respiratory Ventilation, Less than 24 Consecutive Hours, Continuous Positive Airway Pressure (ICD-10-PCS; 2019-01-27)
PROC: 5A09357 Assistance with Respiratory Ventilation, Less than 24 Consecutive Hours, Continuous Positive Airway Pressure (ICD-10-PCS; 2019-01-28)
PROC: 5A09357 Assistance with Respiratory Ventilation, Less than 24 Consecutive Hours, Continuous Positive Airway Pressure (ICD-10-PCS; 2019-01-29)
DX: A41.9 Sepsis, unspecified organism (principal); J18.9 Pneumonia, unspecified organism; I50.23 Acute on chronic systolic (congestive) heart failure; J96.21 Acute and chronic respiratory failure with hypoxia; J44.0 Chronic obstructive pulmonary disease with (acute) lower respiratory infection; R04.2 Hemoptysis; I48.91 Unspecified atrial fibrillation; I95.89 Other hypotension; E03.9 Hypothyroidism, unspecified; E78.00 Pure hypercholesterolemia, unspecified; F41.9 Anxiety disorder, unspecified; I11.0 Hypertensive heart disease with heart failure; I25.10 Atherosclerotic heart disease of native coronary artery without angina pectoris; I25.2 Old myocardial infarction; Z79.899 Other long term (current) drug therapy; Z79.02 Long term (current) use of antithrombotics/antiplatelets; Z87.891 Personal history of nicotine dependence; Z82.49 Family history of ischemic heart disease and other diseases of the circulatory system; Z82.3 Family history of stroke
CPT/HCPCS: 36415; 36600; 71045; 71250; 80053; 82803; 83605; 83880; 84484; 85018; 85025; 85610; 85730; 87040; 87070; 93005; 94640; 94660; 94760; 96374; 96375; 99285; G0378; J0692; J1940; J2060; J2930; J3370; J7512